=== PATIENT | female | born 1995 | race Caucasian/White ===

== ENCOUNTER 2019-05-27 08:21 | Emergency (ER) | payer OTHER ==
[~2019-05-27] VITALS: Ht 162.6 cm; Wt 52.2 kg
[~2019-05-27 08:21] MED LIST: PEPCID40 MG PO; PROTONIX40 MG PO; ZOFRAN4 MG PO
== END 2019-05-27 13:12 | disposition home or self-care (01) ==
LOC: ER 08:21
DX: J11.1 Influenza due to unidentified influenza virus with other respiratory manifestations (principal); B34.9 Viral infection, unspecified; E86.0 Dehydration